=== PATIENT | female | born 1980 | race African-American/Black ===

== ENCOUNTER 2017-03-15 18:18 | Emergency (ER) | payer MEDICAID ==
[~2017-03-15] VITALS: Ht 157.5 cm; Wt 95.3 kg
[~2017-03-15 18:18] MED LIST: ACETAMINOPHEN-1 EAC1 ORAL; BACTRIM DS TAB1 EAC1 ORAL; BENADRYL25 MG ORAL; CLARITIN10 M2 ORAL; FEOSOL1 TAB ORAL; KENALOG 0.5% CR15 GM APPLIC; NKM; PREDNISONE20 MG ORAL; TRAMADOL HCL50 MG ORAL; TYLENOL650 MG/20. ORAL
--- NOTE | 2017-03-15 18:43 | Emergency Room Report ---
History of Present Illness General Chief Complaint: Abdominal Pain Source: Patient Present Illness HPI Patient presents with complaints of lower abdominal suprapubic discomfort patient reports the pain is radiating towards her back Patient had fibroids removed last July She has irregular menstrual cycles Denies any vomiting denies any diarrhea Again the pain does radiate toward her lower back as well denies any trauma denies any blood per rectum Allergies: Coded Allergies: PENICILLINS (Unverified Allergy, Unknown, 11/03/13) Patient History Past Medical History: see triage record Pertinent Family History: none Last Menstrual Period: 02/18/17 Now: No Reviewed Nursing Documentation: PMH: Agreed, PSxH: Agreed Review of Systems All Other Systems: negative except mentioned in HPI Physical Exam Vital Signs Date Time Temp Pulse Resp B/P (MAP) Pulse Ox O2 Delivery O2 Flow Rate FiO2 03/15/17 18:21 98.1 77 16 131/84 100 Room Air Sp02 EP Interpretation: reviewed, normal General Appearance: well appearing, no apparent distress Head: normocephalic, atraumatic Eyes: bilateral eye PERRL, bilateral eye EOMI ENT: hearing grossly normal, normal pharynx, TMs + canals normal, uvula midline Neck: full range of motion, supple, no meningismus, no bony tend Respiratory: lungs clear, normal breath sounds, no rhonchi, no respiratory distress, no retraction, no accessory muscle use Cardiovascular #1: normal peripheral pulses, regular rate, rhythm, no edema, no gallop, no JVD, no murmur Gastrointestinal: normal bowel sounds, non tender, soft, no mass, no organomegaly, non-distended, no guarding, no hernia, no pulsatile mass, no rebound Genitourinary: no CVA tenderness Musculoskeletal: normal inspection Neurologic: oriented x3, responsive, roulette dealer III-XII nml as tested, motor strength/ tone normal, sensory intact Psychiatric: mood/affect normal Skin: normal color, no rash, warm/dry, palpation normal Lymphatic: normal inspection, no adenopathy Medical Decision Making Diagnostic Impression: Primary Impression: Abdominal pain in female ER Course With the patient's history and examination, multiple differentials considered, including but not limited to , ectopic , ovarian torsion, gastritis, cholecystitis, pancreatitis, appendicitis Patient's blood work is normal Patient does have history of fibroids and possible fibroids again However patient has not made criteria for acute emergency imaging Patient's urine sample also shows infection which could patient's describe the low back pain Patient is placed on oral antibiotics requires close followup Labs Test 03/15/17 18:45 03/15/17 19:40 White Blood Count 12.3 K/UL (4.8-10.8) Red Blood Count 3.64 M/UL (4.20-5.40) Hemoglobin 10.6 G/DL (12.0-16.0) Hematocrit 34.1 % (37.0-47.0) Mean Corpuscular Volume 94 FL (80-99) Mean Corpuscular Hemoglobin 29.1 PG (27.0-31.0) Mean Corpuscular Hemoglobin Concent 31.1 G/DL (32.0-36.0) Red Cell Distribution Width 15.0 % (11.6-14.8) Platelet Count 258 K/UL (150-450) Mean Platelet Volume 6.3 FL (6.5-10.1) Neutrophils (%) (Auto) 60.9 % (45.0-75.0) Lymphocytes (%) (Auto) 28.4 % (20.0-45.0) Monocytes (%) (Auto) 6.6 % (1.0-10.0) Eosinophils (%) (Auto) 2.7 % (0.0-3.0) Basophils (%) (Auto) 1.5 % (0.0-2.0) Sodium Level 136 MMOL/L (136-145) Potassium Level 3.8 MMOL/L (3.5-5.1) Chloride Level 102 MMOL/L (98-107) Carbon Dioxide Level 23 MMOL/L (21-32) Anion Gap 11 (5-15) Blood Urea Nitrogen 10 mg/dL (7-18) Creatinine 0.8 MG/DL (0.55-1.30) Estimat Glomerular Filtration Rate > 60 mL/min (>60) Glucose Level 82 MG/DL (74-106) Calcium Level 9.4 MG/DL (8.5-10.1) Total Bilirubin 0.3 MG/DL (0.2-1.0) Aspartate Amino Transf (AST/SGOT) 25 U/L (15-37) Alanine Aminotransferase (ALT/SGPT) 38 U/L (12-78) Alkaline Phosphatase 49 U/L (46-116) Total Protein 7.7 G/DL (6.4-8.2) Albumin 3.9 G/DL (3.4-5.0) Globulin 3.8 g/dL Albumin/Globulin Ratio 1.0 (1.0-2.7) Lipase 150 U/L (73-393) Urine Color Brown Urine Appearance Slightly cloudy Urine pH 5 (4.5-8.0) Urine Specific [place] 1.025 (1.005-1.035) Urine Protein 1+ (NEGATIVE) Urine Glucose (UA) Negative (NEGATIVE) Urine Ketones 2+ (NEGATIVE) Urine Occult Blood 2+ (NEGATIVE) Urine Nitrite Negative (NEGATIVE) Urine Bilirubin 1+ (NEGATIVE) Urine Ictotest Negative Urine Urobilinogen 4 MG/DL (0.0-1.0) Urine Leukocyte Esterase 1+ (NEGATIVE) Urine RBC 0-2 /HPF (0 - 2) Urine WBC 0-2 /HPF (0 - 2) Urine Squamous Epithelial Cells Moderate /LPF (NONE/OCC) Urine Bacteria Moderate /HPF (NONE) Urine HCG, Qualitative Negative Last Vital Signs Date Time Temp Pulse Resp B/P (MAP) Pulse Ox O2 Delivery O2 Flow Rate FiO2 03/15/17 18:21 98.1 77 16 131/84 100 Room Air Status: improved Disposition: HOME, SELF-CARE Condition: Improved Scripts Ibuprofen* (MOTRIN*) 600 Mg Tablet 600 MG ORAL Q8H Y for For Pain, #30 TAB 0 Refills Prov: PIPO BAKER D.O. 03/15/17 Trimethoprim/Sulfamethoxazole 160/800* (BACTRIM DS TABLET*) 1 Each Tablet 1 TAB ORAL Q12H, #14 TAB 0 Refills Prov: PIPO BAKER D.O. 03/15/17 Additional Instructions: Patient is provided with the discharge instructions notified to follow up with primary doctor in the next 2-3 days otherwise return to the er with any worsening symptoms. Please note that this report is being documented using [employer] technology. This can lead to erroneous entry secondary to incorrect interpretation by the dictating instrument. PIPO BAKER D.O. Mar 15, 2017 18:43
[2017-03-15 19:10] LABS: BASOPHILS % (AUTO) 1.5 % (0.0-2.0); EOSINOPHILS % (AUTO) 2.7 % (0.0-3.0); LYMPHOCYTES % (AUTO) 28.4 % (20.0-45.0); MEAN CORPUSCULAR HEMOGLOBIN 29.1 PG (27.0-31.0); MEAN CORPUSCULAR HGB CONC 31.1 G/DL (32.0-36.0); MEAN CORPUSCULAR VOLUME 94 FL (80-99); MEAN PLATELET VOLUME 6.3 FL (6.5-10.1); MONOCYTES % (AUTO) 6.6 % (1.0-10.0); NEUTROPHILS % (AUTO) 60.9 % (45.0-75.0); PLATELET COUNT 258 K/UL (150-450); RED BLOOD COUNT 3.64 M/UL (4.20-5.40); WHITE BLOOD COUNT 12.3 K/UL (4.8-10.8)
[2017-03-15 19:41] LABS: ALANINE AMINOTRANSFERASE 38 U/L (12-78); ANION GAP 11 (5-15); ASPARTATE AMINO TRANSFERASE 25 U/L (15-37); CALCIUM 9.4 MG/DL (8.5-10.1); CARBON DIOXIDE 23 MMOL/L (21-32); CHLORIDE 102 MMOL/L (98-107); CREATININE 0.8 MG/DL (0.55-1.30); GLOMERULAR FILTRATION RATE > 60 mL/min (>60); LIPASE 150 U/L (73-393); POTASSIUM 3.8 MMOL/L (3.5-5.1); SODIUM 136 MMOL/L (136-145); TOTAL PROTEIN 7.7 G/DL (6.4-8.2)
[2017-03-15 20:10] LABS: APPEARANCE,URINE SLIGHTLY CLOUDY; KETONES,URINE 2+ (NEGATIVE); LEUKOCYTE ESTERASE ,URINE 1+ (NEGATIVE); NITRITE,URINE NEGATIVE (NEGATIVE); PH,URINE 5 (4.5-8.0); PROTEIN,URINE 1+ (NEGATIVE); UROBILINOGEN,URINE 4 MG/DL (0.0-1.0)
[2017-03-15 20:23] LABS: BACTERIA,URINE MODERATE /HPF; ICTOTEST NEGATIVE; RBC,URINE 0-2 /HPF (0 - 2); SQUAMOUS EPITHELIAL CELL,UR MODERATE /LPF (NONE/OCC); WBC,URINE 0-2 /HPF (0 - 2)
[2017-03-15] MEDS ORDERED: BACTRIM DS TAB1 EAC1 ORAL (20:28)
[2017-03-15] MEDS ORDERED: IBUPROFEN600 MG ORAL (20:28)
[2017-03-15] MEDS ORDERED: Ketorolac 30mg Inj IV ONE (20:45)
[2017-03-15 20:50] VITALS: BP 130/78
[2017-03-15 20:51] VITALS: BP 131/84
== END 2017-03-15 20:51 | disposition home or self-care (01) ==
LOC: EMR 19:01
DX: R10.30 Lower abdominal pain, unspecified (principal); Z88.0 Allergy status to penicillin
CPT/HCPCS: 36415; 80053; 81003; 81025; 83690; 85025; 87086; 99284; J1885

== ENCOUNTER 2017-08-11 14:20 | Emergency (ER) | payer MEDICAID ==
[~2017-08-11] VITALS: Ht 157.5 cm; Wt 90.3 kg
[~2017-08-11 14:20] MED LIST changes: +IBUPROFEN600 MG ORAL
[2017-08-11] MEDS ORDERED: Acetaminophen 500mg (ES) tab ORAL ONE (14:45)
--- NOTE | 2017-08-11 14:58 | Emergency Room Report ---
History of Present Illness General Chief Complaint: Abdominal Pain Source: Patient Present Illness HPI 36 yo female patient presents to ER complaining of urinary symptoms [id number]. Patient reports dysuria, frequency, and urgency. Also complains of suprapubic and back pain during this time. Patient reports clear vaginal discharge; denies itchiness or white cheese-like discharge. Patient also reports weird smell; states smells bad. Denies blood vaginal discharge. Reports taking Tylenol for pain. Denies fever, chest pain, SOB. Denies hx of . Denies recent sexual history. Reports hx of uterine fibroids; reports surgery 3 years ago to have removed. Reports irregular menstrual cycle since that time; bleeding stopped last month; no bleeding since that time, Patient does not have OBGYN currently. Previously seen in ER, imaging not done at that time, discharged with UTI; states feels similar to that time. Allergies: Coded Allergies: PENICILLINS (Unverified Allergy, Unknown, 11/03/13) Patient History Past Medical History: see triage record Last Menstrual Period: 07/16/17 Now: No Reviewed Nursing Documentation: PMH: Agreed, PSxH: Agreed Nursing Documentation-PMH Past Medical History: No Stated History Review of Systems All Other Systems: negative except mentioned in HPI Physical Exam Vital Signs Date Time Temp Pulse Resp B/P (MAP) Pulse Ox O2 Delivery O2 Flow Rate FiO2 08/11/17 14:33 99.6 79 16 123/81 97 Room Air 99.7 Sp02 EP Interpretation: reviewed, normal General Appearance: well appearing, no apparent distress, alert, GCS 15 Head: normocephalic, atraumatic Eyes: bilateral eye normal inspection, bilateral eye PERRL ENT: hearing grossly normal, normal pharynx, no angioedema, normal voice, uvula midline, moist mucus membranes Neck: full range of motion Respiratory: lungs clear, normal breath sounds, no rhonchi, no respiratory distress, no accessory muscle use, no wheezing, speaking full sentences Cardiovascular #1: regular rate, rhythm, no edema Gastrointestinal: non tender, soft, no mass, non-distended, no guarding, no rebound Genitourinary: no CVA tenderness, deferred Musculoskeletal: back normal, digits/nails normal, gait/station normal, normal range of motion, non-tender Neurologic: alert, oriented x3, responsive, motor strength/tone normal, sensory intact Psychiatric: mood/affect normal Skin: no rash Lymphatic: no adenopathy Medical Decision Making PA Attestation Dr. Layton is my supervising Physician whom patient management has been discussed with. Diagnostic Impression: Primary Impression: Urinary tract infection Additional Impression: Bacterial vaginosis ER Course Pt presents to ED c/o urinary symptoms. DDX considered but are not limited to cystitis, pyelonephritis, vaginitis, . VITAL SIGNS are WNL, patient is afebrile. Due to chronicity of symptoms, hx of surgery, and benign PE, patient does not require labs or imaging at this time. Will order UA for UTI. High clinical suspicion for Bacterial vaginosis, pelvic deferred. Will treat symptomatically. Instructed patient not to drink alcohol while on medication. Patient does not require treatment for STI, no hx of sexual activity. ORDERS: UA with reflux Urine Tylenol ED INTERVENTIONS: Tylenol for pain ER COURSE UA results, positive for leukocyte esterase, patient symptomatic for UTI, high clinical suspicion, will treat for UTI. Urine negative Patient is resting comfortably in chair, nontoxic appearing, in no acute distress. Patient states they feel better and is ready to go home. Patient states she contacted insurance for primary care provider name while waiting for test results. DISCHARGE -Rx provided for Macrobid -Rx provided for Metronidazole; do not drink while on medication. -Rx provided for Pyridium for pain. Patient is stable for discharge. Patient resting comfortably, in no acute distress, nontoxic appearing, laughing and smiling. Will provide with patient care instructions and any necessary prescriptions. Patient understands and agrees to treatment plan. Patient encouraged to drink plenty of fluids. Patient to take medication as instructed. Care plan and follow-up instructions provided. Patient questions asked and answered. Patient instructed to follow-up with primary care provider in 3 - 5 days. Followup with STI clinic for further testing and treatment. ER precautions given. Patient instructed to return to ER immediately for any new or worsening of symptoms. Including but not limited to fever, worsening pain , intractable vomiting. Labs Test 08/11/17 14:45 Urine Color Yellow Urine Appearance Slightly cloudy Urine pH 8 (4.5-8.0) Urine Specific [place] 1.015 (1.005-1.035) Urine Protein Negative (NEGATIVE) Urine Glucose (UA) Negative (NEGATIVE) Urine Ketones Negative (NEGATIVE) Urine Occult Blood Negative (NEGATIVE) Urine Nitrite Negative (NEGATIVE) Urine Bilirubin Negative (NEGATIVE) Urine Urobilinogen Normal MG/DL (0.0-1.0) Urine Leukocyte Esterase 1+ (NEGATIVE) Urine RBC 0-2 /HPF (0 - 2) Urine WBC 0-2 /HPF (0 - 2) Urine Squamous Epithelial Cells Many /LPF (NONE/OCC) Urine Triple Phosphate Crystals Few /LPF (NONE) Urine Bacteria Moderate /HPF (NONE) Urine HCG, Qualitative Negative Last Vital Signs Date Time Temp Pulse Resp B/P (MAP) Pulse Ox O2 Delivery O2 Flow Rate FiO2 08/11/17 14:33 99.6 79 16 123/81 97 Room Air 99.7 Disposition: HOME, SELF-CARE Condition: Stable Scripts Phenazopyridine Hcl* (PYRIDIUM*) 100 Mg Tablet 100 MG ORAL THREE TIMES A DAY for 3 Days, #9 TAB Prov: Saqib Bradley 08/11/17 Nitrofurantoin Monohyd/M-Cryst* (MACROBID 100 MG*) 100 Mg Capsule 100 MG ORAL EVERY 12 HOURS for 7 Days, #14 CAP Prov: Saqib Bradley 08/11/17 Metronidazole* (FLAGYL*) 500 Mg Tablet 500 MG ORAL THREE TIMES A DAY for 7 Days, #21 TAB 0 Refills Prov: Saqib Bradley 08/11/17 Patient Instructions: Bacterial Vaginosis, Urinary Tract Infection, Easy-to- Read Additional Instructions: Followup with primary care provider in 3 -5 days and referral to OBGYN. Contact insurance provider to establish primary care provider. Take medications as directed. Patient questions asked and answered. ER precautions given, patient instructed to return to ER immediately for any new or worsening of symptoms. Saqib Bradley Aug 11, 2017 14:58
[2017-08-11 14:59] VITALS: BP 128/78
[2017-08-11 15:22] LABS: APPEARANCE,URINE SLIGHTLY CLOUDY; BILIRUBIN, URINE NEGATIVE (NEGATIVE); GLUCOSE, URINE (UA) NEGATIVE (NEGATIVE); KETONES,URINE NEGATIVE (NEGATIVE); LEUKOCYTE ESTERASE ,URINE 1+ (NEGATIVE); NITRITE,URINE NEGATIVE (NEGATIVE); PH,URINE 8 (4.5-8.0); PROTEIN,URINE NEGATIVE (NEGATIVE); UROBILINOGEN,URINE NORMAL MG/DL (0.0-1.0)
[2017-08-11 15:28] LABS: COLOR,URINE YELLOW
[2017-08-11] MEDS ORDERED: METRONIDAZOLE500 MG ORAL (15:47)
[2017-08-11] MEDS ORDERED: NITROFURANTOIN100 M2 ORAL (15:47)
[2017-08-11] MEDS ORDERED: PHENAZOPYRIDIN100 MG ORAL (15:47)
[2017-08-11 16:08] VITALS: BP_SYST 113; BP_SYST 128; BP_DIAS 72; BP_DIAS 78
== END 2017-08-11 16:08 | disposition home or self-care (01) ==
LOC: EMR 15:30
DX: N39.0 Urinary tract infection, site not specified (principal); N76.0 Acute vaginitis; Z88.0 Allergy status to penicillin
CPT/HCPCS: 81003; 81025; 87086; 99283

== ENCOUNTER 2017-09-30 17:13 | Emergency (ER) | payer MEDICAID ==
[~2017-09-30] VITALS: Ht 157.5 cm; Wt 89.8 kg
[~2017-09-30 17:13] MED LIST changes: +METRONIDAZOLE500 MG ORAL; +NITROFURANTOIN100 M2 ORAL; +PHENAZOPYRIDIN100 MG ORAL
[2017-09-30 18:15] LABS: BILIRUBIN, URINE NEGATIVE (NEGATIVE); COLOR,URINE PALE YELLOW; GLUCOSE, URINE (UA) NEGATIVE (NEGATIVE); KETONES,URINE NEGATIVE (NEGATIVE); LEUKOCYTE ESTERASE ,URINE NEGATIVE (NEGATIVE); NITRITE,URINE NEGATIVE (NEGATIVE); PH,URINE 7 (4.5-8.0); PROTEIN,URINE NEGATIVE (NEGATIVE); UROBILINOGEN,URINE NORMAL MG/DL (0.0-1.0)
[2017-09-30 18:18] LABS: APPEARANCE,URINE CLEAR
[2017-09-30] MEDS ORDERED: Phenazopyridine 200mg tab ORAL ONE (18:45)
[2017-09-30] MEDS ORDERED: Ketorolac 60mg Inj IM ONE (19:00)
--- NOTE | 2017-09-30 19:05 | Emergency Room Report ---
History of Present Illness General Chief Complaint: Abdominal Pain Source: Patient Present Illness HPI 36-year-old female presents to the emergency department complaining of 7 out of 10 in severity lower abdominal cramping and dysuria 2 weeks. Patient reports she has been getting frequent UTIs. She denies fevers or chills she reports some low back pain. Denies hematuria or urgency. She reports she has a history of fibroids and had myomectomy performed 2 years ago. Patient also reports that her menstrual cycle is irregular and she has intermittent heavy menstruation that does not occur every month. Patient denies she denies vaginal discharge. She denies swollen tender lymph nodes. Denies rashes or vaginal irritation. She denies nausea, vomiting, constipation or diarrhea. Denies hx of STD's. no recent unprotected intercourse. Allergies: Coded Allergies: PENICILLINS (Unverified Allergy, Unknown, 11/03/13) Patient History Past Medical History: see triage record, other - myomectomy Past Surgical History: none Pertinent Family History: none Last Menstrual Period: 08/13/2017 Now: No Reviewed Nursing Documentation: PMH: Agreed; PSxH: Agreed Nursing Documentation-PMH Past Medical History: No Stated History Review of Systems All Other Systems: negative except mentioned in HPI Physical Exam Vital Signs Date Time Temp Pulse Resp B/P (MAP) Pulse Ox O2 Delivery O2 Flow Rate FiO2 09/30/17 17:51 98.1 73 16 111/77 99 Room Air 98.1 Sp02 EP Interpretation: reviewed, normal General Appearance: no apparent distress, alert, GCS 15, non-toxic Head: normocephalic, atraumatic ENT: hearing grossly normal, normal voice Neck: full range of motion Respiratory: lungs clear, normal breath sounds, speaking full sentences Cardiovascular #1: regular rate, rhythm Gastrointestinal: normal bowel sounds, soft, no guarding, other - TTP low midline/ pelvic area, no macburnys, no adnexal ttp. Rectal: deferred Genitourinary: normal inspection, no CVA tenderness Musculoskeletal: back normal, gait/station normal, normal range of motion, non- tender Neurologic: alert, oriented x3, responsive, motor strength/tone normal, sensory intact, normal gait, speech normal, grossly normal Psychiatric: judgement/insight normal Skin: normal color, no rash, warm/dry, well hydrated Lymphatic: no adenopathy Medical Decision Making PA Attestation Dr. Silverio is my supervising Physician whom patient management has been discussed with. Diagnostic Impression: Primary Impression: Cystitis Additional Impression: Pelvic pain ER Course 36-year-old female presents to the emergency department complaining of 7 out of 10 in severity lower abdominal cramping and dysuria 2 weeks. Patient reports she has been getting frequent UTIs. She denies fevers or chills she reports some low back pain. Denies hematuria or urgency. She reports she has a history of fibroids and had myomectomy performed 2 years ago. Patient also reports that her menstrual cycle is irregular and she has intermittent heavy menstruation that does not occur every month. Patient denies she denies vaginal discharge. She denies swollen tender lymph nodes. Denies rashes or vaginal irritation. She denies nausea, vomiting, constipation or diarrhea. Denies hx of STD's. no recent unprotected intercourse. Ddx considered but are not limited to UTi , Pyelo, STI, Stone, Cystitis, PID, Fibroids, endometriosis just to name a few. Vital signs: are WNL, pt. is afebrile H&PE are most consistent with UTI ORDERS: - UA labs are attached : unremarkable -Urine Hcg: Negative ED INTERVENTIONS: -Pyridium -Toradol -d/w pt. conservative treatment, and to follow up with an [employer] [employer]. pt given a list of primary care clinics for follow up. d/w pt. to return to the ED with worsening or new symptoms. DISCHARGE: At this time pt. is stable for d/c to home. Will provide printed patient care instructions, and any necessary prescriptions. Care plan and follow up instructions have been discussed with the patient prior to discharge. Labs Test 09/30/17 18:03 Urine Color Pale yellow Urine Appearance Clear Urine pH 7 (4.5-8.0) Urine Specific [place] 1.005 (1.005-1.035) Urine Protein Negative (NEGATIVE) Urine Glucose (UA) Negative (NEGATIVE) Urine Ketones Negative (NEGATIVE) Urine Occult Blood Negative (NEGATIVE) Urine Nitrite Negative (NEGATIVE) Urine Bilirubin Negative (NEGATIVE) Urine Urobilinogen Normal MG/DL (0.0-1.0) Urine Leukocyte Esterase Negative (NEGATIVE) Urine HCG, Qualitative Negative (NEGATIVE) Last Vital Signs Date Time Temp Pulse Resp B/P (MAP) Pulse Ox O2 Delivery O2 Flow Rate FiO2 09/30/17 17:51 98.1 73 16 111/77 99 Room Air 98.1 Disposition: HOME, SELF-CARE Condition: Stable Scripts Ibuprofen* (MOTRIN*) 600 Mg Tablet 600 MG ORAL THREE TIMES A DAY, #20 TAB 0 Refills Prov: Leigh Ann Ziegler. 09/30/17 Fluconazole (FLUCONAZOLE) 100 Mg Tablet 100 MG ORAL DAILY, #2 TAB 0 Refills Prov: Leigh Ann Ziegler 09/30/17 Phenazopyridine Hcl* (PYRIDIUM*) 200 Mg Tablet 200 MG ORAL THREE TIMES A DAY, #12 TAB 0 Refills Prov: Leigh Ann Ziegler 09/30/17 Tramadol Hcl* (ULTRAM*) 50 Mg Tablet 50 MG ORAL Q6H, #6 TAB 0 Refills Prov: Leigh Ann Ziegler. 09/30/17 Referrals: [facility],REFERR[facility] (PCP) Patient Instructions: Pelvic Pain, Female Additional Instructions: Take medications as directed. Follow up with a Primary Care Provider in 3-5 days, even if your symptoms have resolved. --Please review list of primary care clinics, if you do not already have a primary care provider Return sooner to ED if new symptoms occur, or current symptoms become worse. - Please note that this Emergency Department Report was dictated using [employer]steam and power superintendent technology software, occasionally this can lead to erroneous entry secondary to interpretation by the dictation equipment. Leigh Ann Ziegler Sep 30, 2017 19:05
[2017-09-30] MEDS ORDERED: PHENAZOPYRIDIN200 MG ORAL (19:08)
[2017-09-30] MEDS ORDERED: FLUCONAZOLE100 MG ORAL (19:08)
[2017-09-30] MEDS ORDERED: TRAMADOL HCL50 MG ORAL (19:08)
[2017-09-30] MEDS ORDERED: IBUPROFEN600 MG ORAL (19:08)
[2017-09-30 19:20] VITALS: BP 122/74
== END 2017-09-30 19:22 | disposition home or self-care (01) ==
LOC: EMR 18:20
DX: N30.90 Cystitis, unspecified without hematuria (principal); R10.2 Pelvic and perineal pain; Z88.0 Allergy status to penicillin
CPT/HCPCS: 81003; 81025; 96372; 99284

== ENCOUNTER 2019-02-09 22:14 | Emergency (ER) | payer MEDICAID ==
[~2019-02-09] VITALS: Ht 154.9 cm; Wt 81.6 kg
[~2019-02-09 22:14] MED LIST changes: +FLUCONAZOLE100 MG ORAL; +PHENAZOPYRIDIN200 MG ORAL
--- NOTE | 2019-02-09 22:40 | Emergency Room Report ---
History of Present Illness General Chief Complaint: Pain Source: Patient Present Illness HPI Patient is a a 38-year-old female presents after increased headache and generalized weakness. She denies being . She reports having multiple episodes of vomiting. She reports having prior history of enlarged uterine fibroids as well as prior myomectomy. She denies any heavy bleeding. She states that she had previously been anemic but has not had her blood checked recently. She reports having some family history of thyroid disease. She reports having some sore throat as well as headache. She states that she gets similar to headaches in the past. Allergies: Coded Allergies: PENICILLINS (Unverified Allergy, Unknown, 11/03/13) Patient History Past Medical History: see triage record Last Menstrual Period: current Now: No : 1 Para: 0 Reviewed Nursing Documentation: PMH: Agreed; PSxH: Agreed Review of Systems All Other Systems: negative except mentioned in HPI Physical Exam Vital Signs Date Time Temp Pulse Resp B/P (MAP) Pulse Ox O2 Delivery O2 Flow Rate FiO2 02/09/19 22:18 98.1 81 16 116/76 (89) 97 Sp02 EP Interpretation: reviewed, normal General Appearance: normal inspection, well appearing, no apparent distress, alert, GCS 15 Head: atraumatic ENT: normal ENT inspection, hearing grossly normal, normal voice Neck: normal inspection, full range of motion, supple, no bony tend Respiratory: normal inspection, lungs clear, normal breath sounds, no respiratory distress, no retraction, no wheezing Cardiovascular #1: regular rate, rhythm, no edema Gastrointestinal: normal inspection, normal bowel sounds, non tender, soft, no guarding, no hernia Genitourinary: no CVA tenderness Musculoskeletal: normal inspection, back normal, normal range of motion Neurologic: normal inspection, alert, responsive, speech normal Psychiatric: normal inspection, judgement/insight normal, mood/affect normal Medical Decision Making Diagnostic Impression: Primary Impression: Anemia Additional Impressions: Headache Gastroenteritis ER Course Patient presents for headache. Differential diagnoses included but was not limited to skull fracture, subarachnoid hemorrhage, meningitis, aneurysm, mass lesion, intracranial hemorrhage. Because of complexity of patient's case laboratory tests and imaging studies were ordered. Patient's laboratory testing was notable for a minimally elevated white blood count. Patient's anemia does not appear to be a significant contributor to the patient's headache. Patient appears to have some prior history of headaches in the past. CT imaging does not appear indicated. She is given medications for symptomatic treatment as well as acid blockers. Advised to return if any worsening condition or other concerns. Patient was advised to follow-up with primary care physician for recheck. Labs Test 02/09/19 22:35 02/09/19 22:50 Urine Color Yellow Urine Appearance Slightly cloudy Urine pH 7 (4.5-8.0) Urine Specific [place] 1.010 (1.005-1.035) Urine Protein 1+ (NEGATIVE) Urine Glucose (UA) Negative (NEGATIVE) Urine Ketones 1+ (NEGATIVE) Urine Blood 4+ (NEGATIVE) Urine Nitrite Negative (NEGATIVE) Urine Bilirubin Negative (NEGATIVE) Urine Urobilinogen 4 MG/DL (0.0-1.0) Urine Leukocyte Esterase 1+ (NEGATIVE) Urine RBC 0-2 /HPF (0 - 2) Urine WBC 2-4 /HPF (0 - 2) Urine Squamous Epithelial Cells Many /LPF (NONE/OCC) Urine Bacteria Few /HPF (NONE) Urine HCG, Qualitative Negative (NEGATIVE) White Blood Count 10.9 K/UL (4.8-10.8) Red Blood Count 3.75 M/UL (4.20-5.40) Hemoglobin 12.3 G/DL (12.0-16.0) Hematocrit 36.4 % (37.0-47.0) Mean Corpuscular Volume 97 FL (80-99) Mean Corpuscular Hemoglobin 32.7 PG (27.0-31.0) Mean Corpuscular Hemoglobin Concent 33.7 G/DL (32.0-36.0) Red Cell Distribution Width 12.2 % (11.6-14.8) Platelet Count 272 K/UL (150-450) Mean Platelet Volume 5.8 FL (6.5-10.1) Neutrophils (%) (Auto) 58.8 % (45.0-75.0) Lymphocytes (%) (Auto) 30.7 % (20.0-45.0) Monocytes (%) (Auto) 8.1 % (1.0-10.0) Eosinophils (%) (Auto) 1.5 % (0.0-3.0) Basophils (%) (Auto) 0.9 % (0.0-2.0) Prothrombin Time 9.7 SEC (9.30-11.50) Prothromb Time International Ratio 0.9 (0.9-1.1) Activated Partial Thromboplast Time 24 SEC (23-33) Sodium Level 143 MMOL/L (136-145) Potassium Level 4.4 MMOL/L (3.5-5.1) Chloride Level 111 MMOL/L (98-107) Carbon Dioxide Level 22 MMOL/L (21-32) Anion Gap 10 mmol/L (5-15) Blood Urea Nitrogen 7 mg/dL (7-18) Creatinine 0.9 MG/DL (0.55-1.30) Estimat Glomerular Filtration Rate > 60 mL/min (>60) Glucose Level 92 MG/DL (74-106) Calcium Level 8.7 MG/DL (8.5-10.1) Total Bilirubin 0.3 MG/DL (0.2-1.0) Aspartate Amino Transf (AST/SGOT) 20 U/L (15-37) Alanine Aminotransferase (ALT/SGPT) 31 U/L (12-78) Alkaline Phosphatase 37 U/L (46-116) Troponin I 0.009 ng/mL (0.000-0.056) Pro-B-Type Natriuretic Peptide 49 pg/mL (0-125) Total Protein 7.1 G/DL (6.4-8.2) Albumin 3.7 G/DL (3.4-5.0) Globulin 3.4 g/dL Albumin/Globulin Ratio 1.1 (1.0-2.7) Thyroid Stimulating Hormone (TSH) 1.475 uiU/mL (0.358-3.740) Last Vital Signs Date Time Temp Pulse Resp B/P (MAP) Pulse Ox O2 Delivery O2 Flow Rate FiO2 02/09/19 22:18 98.1 81 16 116/76 (89) 97 Status: improved Disposition: HOME, SELF-CARE Condition: Stable Scripts Famotidine (PEPCID AC) 20 Mg Tablet 20 MG PO DAILY, #30 TAB Prov: Josesito Barboza MD 02/10/19 Ondansetron (Zofran) 4 Mg Tablet 4 MG ORAL Q6H PRN for Nausea & Vomiting, #30 TAB 0 Refills Prov: Josesito Barboza MD 02/10/19 Josesito Barboza MD Feb 09, 2019 22:40
[2019-02-09 22:43] LABS: APPEARANCE,URINE SLIGHTLY CLOUDY; BILIRUBIN, URINE NEGATIVE (NEGATIVE); GLUCOSE, URINE (UA) NEGATIVE (NEGATIVE); KETONES,URINE 1+ (NEGATIVE); LEUKOCYTE ESTERASE ,URINE 1+ (NEGATIVE); NITRITE,URINE NEGATIVE (NEGATIVE); PH,URINE 7 (4.5-8.0); PROTEIN,URINE 1+ (NEGATIVE); UROBILINOGEN,URINE 4 MG/DL (0.0-1.0)
[2019-02-09] MEDS ORDERED: Metoclopramide 10mg/2ml Inj IVP ONE (22:45)
--- NOTE | 2019-02-09 22:45 | NUR ---
ED Nurse Note: Recieved pt from home, here with c/o migraine headache for past week and increasing pain, also has abdominal pain from fibroids, pt denies cp, sob, or any other complaints or discomforts.
[2019-02-09 22:46] LABS: COLOR,URINE YELLOW
[2019-02-09 23:24] LABS: BASOPHILS % (AUTO) 0.9 % (0.0-2.0); EOSINOPHILS % (AUTO) 1.5 % (0.0-3.0); HEMATOCRIT 36.4 % (37.0-47.0); HEMOGLOBIN 12.3 G/DL (12.0-16.0); LYMPHOCYTES % (AUTO) 30.7 % (20.0-45.0); MEAN CORPUSCULAR VOLUME 97 FL (80-99); MONOCYTES % (AUTO) 8.1 % (1.0-10.0); NEUTROPHILS % (AUTO) 58.8 % (45.0-75.0); PLATELET COUNT 272 K/UL (150-450); RED BLOOD COUNT 3.75 M/UL (4.20-5.40); RED CELL DISTRIBUTION WIDTH 12.2 % (11.6-14.8); WHITE BLOOD COUNT 10.9 K/UL (4.8-10.8)
[2019-02-09 23:27] LABS: ANION GAP 10 mmol/L (5-15); BLOOD UREA NITROGEN 7 mg/dL (7-18); CALCIUM 8.7 MG/DL (8.5-10.1); CARBON DIOXIDE 22 MMOL/L (21-32); CHLORIDE 111 MMOL/L (98-107); CREATININE 0.9 MG/DL (0.55-1.30); POTASSIUM 4.4 MMOL/L (3.5-5.1); SODIUM 143 MMOL/L (136-145)
[2019-02-09 23:36] LABS: INR 0.9 (0.9-1.1)
[2019-02-09 23:39] LABS: ALANINE AMINOTRANSFERASE 31 U/L (12-78); ALBUMIN 3.7 G/DL (3.4-5.0); ALBUMIN/GLOBULIN RATIO 1.1 (1.0-2.7); ALKALINE PHOSPHATASE 37 U/L (46-116); ASPARTATE AMINO TRANSFERASE 20 U/L (15-37); BILIRUBIN,TOTAL 0.3 MG/DL (0.2-1.0)
[2019-02-10] MEDS ORDERED: PEPCID AC20 M2 PO (00:07)
[2019-02-10] MEDS ORDERED: ZOFRAN4 MG ORAL (00:07)
--- NOTE | 2019-02-10 01:00 | NUR ---
ER DISCHARGE NOTE: Patient is cleared to be discharged per ERMD, pt is aox4, on room air, with stable vital signs. pt was given dc and prescription instructions, pt was able to verbalize understanding, pt id band and iv site removed without complications. pt is able to ambulate with steady gait. pt took all belongings.
[2019-02-10 01:10] VITALS: BP 116/76
== END 2019-02-10 01:10 | disposition home or self-care (01) ==
LOC: EMR 22:36
DX: R51 Headache (principal); R53.1 Weakness
CPT/HCPCS: 36415; 80053; 81003; 81025; 83880; 84443; 84484; 85025; 85610; 85730; 86850; 86900; 86901; 96374; J2765; Z7502; 99284

== ENCOUNTER 2019-02-14 21:24 | Emergency (ER) | payer MEDICAID ==
[~2019-02-14] VITALS: Ht 154.9 cm; Wt 81.6 kg
[~2019-02-14 21:24] MED LIST changes: +PEPCID AC20 M2 PO; +ZOFRAN4 MG ORAL
[2019-02-14 22:00] VITALS: BP 116/78
--- NOTE | 2019-02-14 22:05 | NUR ---
ED Nurse Note: PT walked in c/o headache x 5 days and progressively worsening, pt reports she was in the ED recently but sx hasn't been improving, pt reports nausea and vomiting. pt AA&ox4, gcs=15, skin warm and dry, resp even and unlabored on RA, vss, ambulatory w/ steady gait, will cont monitor.
[2019-02-14] MEDS ORDERED: Metoclopramide 10mg/2ml Inj IVP ONE (22:15)
[2019-02-14] MEDS ORDERED: Ketorolac 30mg Inj IV ONE (22:15)
[2019-02-14] MEDS ORDERED: DiphenhydrAMINE 50mg/ml Inj IVP ONE (22:15)
--- NOTE | 2019-02-14 22:30 | NUR ---
ED Nurse Note: pt off to CT.
--- NOTE | 2019-02-14 22:42 | Diagnostic Imaging Report ---
Indication: Headache Technique: Contiguous 5 mm thick transaxial imaging of the head obtained in a Siemens Sensation [address] scanner. Soft tissue and bone windows generated. Automatic Exposure Control was utilized. Total Dose length Product (DLP): 1330.[address] Dose Index Volume (CTDIvol): 70.38 mGy Comparison: none Findings: The size and configuration of the cortical sulci, basal cisterns, and ventricles are within normal limits for age. There is no mass effect, midline shift, or edema identified. There is no evidence of acute hemorrhage or abnormal intra-axial or extra-axial fluid collections. The bones and soft tissues are unremarkable. There is a fluid retention cyst in the right maxillary sinus partially seen on this study. Impression: No mass effect, edema or acute bleed. The CT scanner at [facility] is accredited by the [employer] and the scans are performed using dose optimization techniques as appropriate to a performed exam including Automatic Exposure control.
[2019-02-15] MEDS ORDERED: FIORICET1 EA ORAL (00:24)
[2019-02-15] MEDS ORDERED: REGLAN10 M1 ORAL (00:24)
[2019-02-15 00:40] VITALS: BP 115/76
--- NOTE | 2019-02-15 00:40 | NUR ---
ED Nurse Note: iv d/c and id band removed.
--- NOTE | 2019-02-15 00:40 | NUR ---
ED Nurse Note: pt cleared to be d/c per eRMD, pt discharge and aftercare instruction provided w/ prescription, pt education done via discussion and handout, pt advised to follow up with pcp or return to ed if changes in condition, vss, ambulatory w/ steady gait, left w/ all belongings.
--- NOTE | 2019-02-15 06:34 | Emergency Room Report ---
History of Present Illness General Chief Complaint: Headache Source: Patient Present Illness HPI 38-year-old female presents ED for evaluation. Complaining of headache for the last 5 days. States that she has been having these headaches on and off for the last 1 year. Frontal, throbbing, 8 out of 10, nonradiating. Has had some vomiting. Denies photophobia or blurry vision. Has not yet seen a neurologist for this. Has history of fibroids. Is currently not on contraceptives because they were making her headaches worse. Denies any vaginal bleeding or abdominal pain at this time. No other aggravating relieving factors. Denies any other associated symptoms Allergies: Coded Allergies: PENICILLINS (Unverified Allergy, Unknown, 11/03/13) Patient History Past Medical History: migraines, other - fibroids Past Surgical History: none Pertinent Family History: none Social History: Denies: smoking, alcohol use, drug use Last Menstrual Period: June- still on it Now: No Immunizations: UTD Reviewed Nursing Documentation: PMH: Agreed; PSxH: Agreed Nursing Documentation-PMH Past Medical History: No History, Except For Review of Systems All Other Systems: negative except mentioned in HPI Physical Exam Vital Signs Date Time Temp Pulse Resp B/P (MAP) Pulse Ox O2 Delivery O2 Flow Rate FiO2 02/14/19 21:25 98.4 101 18 116/78 (91) 96 Room Air Sp02 EP Interpretation: reviewed, normal General Appearance: no apparent distress, alert, GCS 15, non-toxic Head: normocephalic, atraumatic Eyes: bilateral eye normal inspection, bilateral eye PERRL ENT: hearing grossly normal, normal pharynx, no angioedema, normal voice Neck: full range of motion, supple, no meningismus, supple/symm/no masses Respiratory: chest non-tender, lungs clear, normal breath sounds, speaking full sentences Cardiovascular #1: regular rate, rhythm, no edema Cardiovascular #2: 2+ carotid (R), 2+ carotid (L), 2+ radial (R), 2+ radial (L) , 2+ dorsalis pedis (R), 2+ dorsalis pedis (L) Gastrointestinal: normal bowel sounds, non tender, soft, non-distended, no guarding, no rebound Rectal: deferred Genitourinary: normal inspection, no CVA tenderness Musculoskeletal: back normal, gait/station normal, normal range of motion, non- tender Neurologic: alert, oriented x3, responsive, motor strength/tone normal, sensory intact, speech normal Psychiatric: judgement/insight normal, memory normal, mood/affect normal, no suicidal/homicidal ideation Reflexes: 3+ bicep (R), 3+ bicep (L), 3+ tricep (R), 3+ tricep (L), 3+ knee (R) , 3+ knee (L) Lymphatic: no adenopathy Medical Decision Making Diagnostic Impression: Primary Impression: Headache Qualified Codes: R51 - Headache ER Course Hospital Course 38 yo F presents to ED c/o headache. with nausea and vomiting Differential diagnoses include: tension headache, migraine, dehydration, intracranial bleed Clinical course Patient placed on stretcher. After initial history and physical I ordered IVFs , meds, CT CTno acute process Upon reassessment patient states pain has improved. Patient feels better wishes to go home. I discussed findings with patient. Will discharge to home with medications. We will also provide neurology referral. i. I feel this is a highly complex case requiring extensive working including EKG/Rhythm strip, Xray/CT/US, Blood/urine lab work, repeat exams while in ED, and administration of strong opiates/narcotics for pain control, admission to hospital or close patient follow up. Diagnosis - headache stable and discharged to home with Rx Johnoricet reglan. f/up with PMD/ neurology. return to ED if symptoms recur/worsen. CT/MRI/US Diagnostic Results CT/MRI/US Diagnostic Results : Imaging Test Ordered: CT Head Impression no acute process Last Vital Signs Date Time Temp Pulse Resp B/P (MAP) Pulse Ox O2 Delivery O2 Flow Rate FiO2 02/15/19 00:40 98.8 96 18 115/76 96 Room Air Status: improved Disposition: HOME, SELF-CARE Condition: Stable Scripts Metoclopramide Hcl* (REGLAN*) 10 Mg Tablet 10 MG ORAL THREE TIMES A DAY, #15 TAB Prov: Hemal Soares MD 02/15/19 Acetamin/Butalbital/Caffeine* (FIORICET*) 1 Ea Tab 1 TAB ORAL Q6H, #15 TAB 0 Refills Prov: Hemal Soares MD 02/15/19 Referrals: Dhiraj Elizalde MD Patient Instructions: General Headache Without Cause Hemal Soares MD Feb 15, 2019 06:34
== END 2019-02-15 00:40 | disposition home or self-care (01) ==
LOC: EMR 22:00
DX: R51 Headache (principal); Z88.0 Allergy status to penicillin
CPT/HCPCS: 70450; 96361; 96374; 96375; J1200; J1885; J2765; Z7502; 99284

== ENCOUNTER 2019-04-27 21:25 | Emergency (ER) | payer MEDICAID ==
[~2019-04-27] VITALS: Ht 157.5 cm; Wt 88.0 kg
[~2019-04-27 21:25] MED LIST changes: +FIORICET1 EA ORAL; +REGLAN10 M1 ORAL
--- NOTE | 2019-04-27 21:44 | NUR ---
ED Nurse Note: pt presents to the ED c/o abd pain in the suprapubic region that she rates a 8/10. pt denies any urinary symptoms but does state that she has vmontied twice today and food came out. pt reports that she has fibroids and the pain is usually relieved by iburpofen but today when she took it, she had no relief of symptoms. pt reports that the pain comes and goes. no cardiac or respiratory symptoms at this time.
[2019-04-27 21:45] VITALS: BP 119/82
[2019-04-27] MEDS ORDERED: HYDROcodone/Acetamin 5/325 tab ORAL ONE (22:15)
--- NOTE | 2019-04-27 22:18 | NUR ---
ED Nurse Note: pt was able to provide 30 mL of dark yellow/brown urine, pt stated it was painful to urinate
--- NOTE | 2019-04-27 22:20 | Emergency Room Report ---
History of Present Illness General Chief Complaint: Abdominal Pain Source: Patient Present Illness HPI This is a 38-year-old female with a history of fibroid. She presents with chief complaint of abdominal pain. Pain is to the mid pelvic area. She said this is from pain from her fibroid uterus. She said that she supposed to have a myomectomy done in May. She also have headache because of the pain. No fever chills but no dysuria frequency. Pain is 8 out of 10. Motrin is not helping. Denies any other complaint. Nothing made it better. Nothing made it worse. Allergies: Coded Allergies: PENICILLINS (Unverified Allergy, Unknown, 11/03/13) Patient History Past Medical History: see triage record, old chart reviewed Past Surgical History: none Pertinent Family History: none Social History: Denies: smoking Last Menstrual Period: 06/2018 Now: No : 1 Immunizations: other Reviewed Nursing Documentation: PMH: Agreed; PSxH: Agreed Nursing Documentation-PMH Past Medical History: No History, Except For Hx Hypertension: No Hx Pacemaker: No Hx Asthma: No Hx COPD: No Hx Diabetes: No Hx Cancer: No Hx Gastrointestinal Problems: No - FIBROIDS CRAMPING Hx Dialysis: No History Of Psychiatric Problem: No Hx Neurological Problems: No Hx Cerebrovascular Accident: No Hx Seizures: No Review of Systems Eye: Denies: eye pain, blurred vision ENT: Denies: ear pain, nose congestion, throat swelling Respiratory: Denies: cough, shortness of breath Cardiovascular: Denies: chest pain, palpitations Gastrointestinal: Reports: abdominal pain, nausea; Denies: diarrhea, vomiting Musculoskeletal: Denies: back pain, joint pain Skin: Denies: rash Neurological: Reports: headache; Denies: numbness Endocrine: Denies: increased thirst, increased urine Hematologic/Lymphatic: Denies: easy bruising All Other Systems: negative except mentioned in HPI Physical Exam Vital Signs Date Time Temp Pulse Resp B/P (MAP) Pulse Ox O2 Delivery O2 Flow Rate FiO2 04/27/19 21:34 98.8 101 17 119/82 (94) 97 Room Air Vitals normal Sp02 EP Interpretation: reviewed, normal General Appearance: well appearing, no apparent distress, alert Head: normocephalic, atraumatic Eyes: bilateral eye PERRL, bilateral eye EOMI ENT: hearing grossly normal, normal pharynx Neck: full range of motion, supple, no meningismus Respiratory: chest non-tender, lungs clear, normal breath sounds Cardiovascular #1: regular rate, rhythm, no murmur Gastrointestinal: normal bowel sounds, no mass, no organomegaly, no bruit, non- distended, tenderness - Suprapubic Musculoskeletal: back normal, normal range of motion, gait/station normal Psychiatric: mood/affect normal Medical Decision Making Diagnostic Impression: Primary Impression: Abdominal pain in female Additional Impression: UTI (urinary tract infection) Qualified Codes: N30.00 - Acute cystitis without hematuria ER Course Patient presents with pelvic pain. She said this is similar to her previous fibroid uterus. She is supposed to get surgery on May 25. She also has a urinary tract infection. We will put on antibiotics. No evidence of an acute abdomen. No evidence of any torsion. No evidence of any ectopic. Will discharge home. Last Vital Signs Date Time Temp Pulse Resp B/P (MAP) Pulse Ox O2 Delivery O2 Flow Rate FiO2 04/27/19 21:45 98.8 86 17 119/82 97 Room Air Status: unchanged Disposition: HOME, SELF-CARE Condition: Stable Scripts Ibuprofen* (MOTRIN*) 600 Mg Tablet 600 MG ORAL THREE TIMES A DAY, #30 TAB 0 Refills Prov: Franklyn Aguirre MD 04/27/19 Hydrocodone/Acetaminophen 5-325* (HYDROCODONE/ACETAMINOPHEN 5-325*) 1 Each Tablet 1 TAB ORAL Q6H PRN for For Pain, #15 TAB 0 Refills Prov: Franklyn Aguirre MD 04/27/19 Cephalexin* (KEFLEX*) 500 Mg Capsule 500 MG ORAL TID, #21 CAP Prov: Franklyn Aguirre MD 04/27/19 Additional Instructions: Follow-up with your doctor in 7 days. Return if symptoms worsen. Franklyn Aguirre MD Apr 27, 2019 22:20
[2019-04-27 22:33] LABS: APPEARANCE,URINE CLOUDY; BILIRUBIN, URINE NEGATIVE (NEGATIVE); COLOR,URINE YELLOW; GLUCOSE, URINE (UA) NEGATIVE (NEGATIVE); KETONES,URINE 1+ (NEGATIVE); LEUKOCYTE ESTERASE ,URINE 1+ (NEGATIVE); NITRITE,URINE NEGATIVE (NEGATIVE); PH,URINE 6 (4.5-8.0); PROTEIN,URINE 1+ (NEGATIVE); UROBILINOGEN,URINE NORMAL MG/DL (0.0-1.0)
[2019-04-27] MEDS ORDERED: Cephalexin 500mg cap ORAL ONE (22:45)
[2019-04-27] MEDS ORDERED: IBUPROFEN600 MG ORAL (22:46)
[2019-04-27] MEDS ORDERED: HYDROCODON-ACE1 EA15 ORAL (22:46)
[2019-04-27] MEDS ORDERED: CEPHALEXIN500 MG ORAL (22:46)
[2019-04-27 22:52] VITALS: BP 122/78
--- NOTE | 2019-04-27 22:52 | NUR ---
ER DISCHARGE NOTE: Patient is cleared to be discharged per ERMD, pt is aox4, on room air, with stable vital signs. pt was given dc and prescription instructions, pt was able to verbalize understanding, pt id band removed without complications. pt is able to ambulate with steady gait. pt took all belongings.
== END 2019-04-27 22:52 | disposition home or self-care (01) ==
LOC: EMR 21:47
DX: R10.9 Unspecified abdominal pain (principal); N30.00 Acute cystitis without hematuria; D25.9 Leiomyoma of uterus, unspecified; Z88.0 Allergy status to penicillin
CPT/HCPCS: 81003; 81025; 87086; Z7502; 99283